=== PATIENT | female | born 1995 | race Caucasian/White ===

== ENCOUNTER → 2018-05-06 | Outpatient (CLI) | payer OTHER | LOC: COL.RAD 09:00 | DX: Z31.41 Encounter for fertility testing (principal) | CPT/HCPCS: Q9967 ==

== ENCOUNTER 2019-01-09 08:28 | Emergency (ER) | payer OTHER ==
[~2019-01-09] VITALS: Ht 162.6 cm; Wt 126.1 kg
[~2019-01-09 08:28] MED LIST: CELEXA40 MG PO; PROAIR HFA0.09 MG/AC IH
[2019-01-09 09:43] LABS: COLLECTION METHOD CATHETER
[2019-01-09 09:56] LABS: MUCOUS Present /lpf; PH 5 (5-8); URINE APPEARANCE Clear; URINE BACTERIA None Seen /hpf; URINE BILIRUBIN Negative (NEGATIVE); URINE BLOOD 3+ (NEGATIVE); URINE COLOR Yellow; URINE GLUCOSE Negative (NEGATIVE); URINE KETONE Negative (NEGATIVE); URINE LEUKOCYTE ESTERASE Negative (NEGATIVE); URINE NITRATE Negative (NEGATIVE); URINE PROTEIN(semi-quant) Negative (NEGATIVE); URINE UROBILINOGEN Negative (NEGATIVE)
[2019-01-09 10:01] LABS: BASO % 0.5 % (0.0-2.0); EOS # 0.1 (0.0-0.7); EOS % 0.7 % (0-4.0); GRAN # 5.5 (1.4-6.5); GRAN % 65.7 % (42.2-75.2); HEMATOCRIT 38.9 % (37.0-47.0); HEMOGLOBIN 12.3 g/dl (12.5-16.0); LYMPH # 2.4 (1.2-3.4); LYMPH % 28.8 % (20.0-51.0); MEAN CELL VOLUME 81 fl (80.0-100.0); MEAN CORPUSCULAR HEMOGLOBIN 26 pg (27.0-31.0); MEAN CORPUSCULAR HGB CONC 32 g/dl (33.0-37.0); MEAN PLATELET VOLUME 11.6 fl (7.4-10.4); MONO # 0.4 (0.1-0.6); MONO % 4.2 % (1.7-9.3); PLATELET COUNT 265 K/mm3 (130-400); RED BLOOD COUNT 4.82 M/mm3 (4.10-5.30); REDCELL DISTRIBUTION WIDTH-CV 15.1 % (11.5-14.5)
[2019-01-09 10:14] LABS: ALBUMIN 4.4 gm/dL (3.5-5.0); BILIRUBIN,TOTAL 0.2 mg/dL (0.0-1.0); CALCIUM 9.3 mg/dL (8.4-10.2); CREATININE, serum 0.52 (0.52-1.25); POTASSIUM 4.5 mmol/L (3.4-5.0); TOTAL PROTEIN 7.4 gm/dL (6.4-8.2)
[2019-01-09] MEDS ORDERED: PROVERA 10MG10 MG PO (10:54)
[2019-01-09 11:13] VITALS: BP 125/94; PULSE 85; TEMP 98.1
== END 2019-01-09 11:13 | disposition home or self-care (01) ==
LOC: COL.ER 08:28
PROVIDERS: Nurse Practitioner
DX: N92.6 Irregular menstruation, unspecified (principal); F41.9 Anxiety disorder, unspecified; F32.9 Major depressive disorder, single episode, unspecified; G47.53 Recurrent isolated sleep paralysis; Z88.0 Allergy status to penicillin; Z87.891 Personal history of nicotine dependence; Z98.890 Other specified postprocedural states

== ENCOUNTER 2019-12-20 09:24 | Emergency (ER) | payer SELFPAY ==
[~2019-12-20] VITALS: Ht 162.6 cm; Wt 127.3 kg
[~2019-12-20 09:24] MED LIST changes: +PROVERA 10MG10 MG PO
[2019-12-20 09:41] VITALS: TEMP 98.4
[2019-12-20 10:01] LABS: COLLECTION METHOD CLEAN CATCH
[2019-12-20 10:19] LABS: MUCOUS Present /lpf; PH 7 (5-8); URINE APPEARANCE Hazy; URINE BACTERIA Rare /hpf; URINE BILIRUBIN Negative (NEGATIVE); URINE BLOOD 2+ (NEGATIVE); URINE COLOR Yellow; URINE GLUCOSE Negative (NEGATIVE); URINE KETONE Negative (NEGATIVE); URINE LEUKOCYTE ESTERASE Negative (NEGATIVE); URINE NITRATE Negative (NEGATIVE); URINE PROTEIN(semi-quant) Negative (NEGATIVE); URINE RBC 0-2 /hpf; URINE UROBILINOGEN Negative (NEGATIVE)
[2019-12-20 12:36] VITALS: BP 117/81; PULSE 86
== END 2019-12-20 12:54 | disposition home or self-care (01) ==
LOC: COL.ER 09:24
PROVIDERS: Emergency Medicine
DX: N76.0 Acute vaginitis (principal); R10.2 Pelvic and perineal pain; Z32.02 Encounter for pregnancy test, result negative
CPT/HCPCS: J0696

== ENCOUNTER 2021-08-23 22:06 | Emergency (ER) | payer SELFPAY ==
[~2021-08-23] VITALS: Ht 162.6 cm; Wt 126.4 kg
[2021-08-23 22:09] VITALS: TEMP 98.5
[2021-08-23 22:27] LABS: COLLECTION METHOD CLEAN CATCH
[2021-08-23 22:35] LABS: MUCOUS Present (NOT PRESENT); PH 6 (5-8); SQUAMOUS EPITHELIAL 0-2 /hpf (0-10); URINE APPEARANCE Clear (CLEAR/HAZY); URINE BACTERIA None Seen /hpf (NONE SEEN); URINE BILIRUBIN Negative (NEGATIVE); URINE BLOOD 2+ (NEGATIVE); URINE COLOR Yellow (YELLOW); URINE GLUCOSE Negative (NEGATIVE); URINE KETONE 1+ (NEGATIVE); URINE LEUKOCYTE ESTERASE Trace (NEGATIVE); URINE NITRATE Negative (NEGATIVE); URINE PROTEIN(semi-quant) Negative (NEGATIVE); URINE RBC 0-2 /hpf (0-2); URINE UROBILINOGEN Negative (NEGATIVE)
[2021-08-23 23:08] LABS: BASO # 0.1 K/mm3 (0.0-0.2); BASO % 0.7 % (0.0-2.0); EOS % 0.3 % (0.0-4.0); GRAN # 4.9 K/mm3 (1.4-6.5); GRAN % 69.2 % (42.2-75.2); HEMATOCRIT 37.4 % (37.0-47.0); LYMPH # 1.7 K/mm3 (1.2-3.4); LYMPH % 23.5 % (20.0-51.0); MEAN CELL VOLUME 77 fl (80.0-100.0); MEAN CORPUSCULAR HEMOGLOBIN 25 pg (27-31); MEAN CORPUSCULAR HGB CONC 32 g/dl (33.0-37.0); MEAN PLATELET VOLUME 11.7 fl (7.4-10.4); MONO # 0.4 K/mm3 (0.1-0.6); MONO % 6.2 % (1.7-9.3); PLATELET COUNT 252 K/mm3 (130-400); RED BLOOD COUNT 4.89 M/mm3 (4.10-5.30); REDCELL DISTRIBUTION WIDTH-CV 17.6 % (11.5-14.5)
[2021-08-23 23:22] LABS: ALANINE AMINOTRANSFERASE 31 U/L (0-55); ALBUMIN 4.4 gm/dL (3.5-5.0); ALKALINE PHOSPHATASE 79 U/L (40-150); ANION GAP 14 mmol/L (7-16); AST,SGOT 22 U/L (5-34); BILIRUBIN,TOTAL 0.4 mg/dL (0.2-1.2); BLOOD UREA NITROGEN 8 mg/dL (7-19); CALCIUM 9.3 mg/dL (8.4-10.2); CARBON DIOXIDE 20 mmol/L (22-29); CHLORIDE 105 mmol/L (98-107); CREATININE, serum 0.67 mg/dL (0.57-1.11); GLUCOSE 108 mg/dL (70-99); POTASSIUM 3.1 mmol/L (3.5-4.5); SODIUM 139 mmol/L (136-145); TOTAL PROTEIN 7.2 gm/dL (6.2-8.1)
[2021-08-23 23:41] LABS: THYROID STIMULATING HORMONE 0.547 uIU/mL (0.350-4.940)
[2021-08-23 23:55] LABS: TROPONIN-I < 0.010 ng/mL (0.00-0.033)
[2021-08-24 00:59] VITALS: BP 145/98; PULSE 73
== END 2021-08-24 00:59 | disposition home or self-care (01) ==
LOC: COL.ER 22:06
PROVIDERS: Nurse Practitioner Primary Care
DX: N92.6 Irregular menstruation, unspecified (principal); E87.6 Hypokalemia; R00.2 Palpitations; Z32.02 Encounter for pregnancy test, result negative; Z28.310 Unvaccinated for COVID-19